=== PATIENT | female | born 1995 | race Two or more races ===

== ENCOUNTER → 2025-02-13 | Emergency (ER) | payer OTHER ==
[~2025-02-13] VITALS: Ht 157.5 cm; Wt 68.0 kg
[~2025-02-13] MED LIST: KETOROLAC TROMETHAMINE 30 MG VIAL IV ONE; MACROBID 100 M100 MG PO; NORFLEX100MG PO; PEPCID AC20 MG PO
[2025-02-13 16:14] LABS: BASO % 1.0 % (0.1-1.2); EOS # 0.13 (0.04-0.54); EOS % 1.5 % (0.7-7.0); LYMPH # 3.65 (1.18-3.74); LYMPH % 42.0 % (19.3-53.1); MEAN PLATELET VOLUME 9.50 fl (9.4-12.4); MONO # 0.50 (0.24-0.82); MONO % 5.7 % (4.7-12.5); NEUT # 4.31 (1.56-6.13); NEUT % 49.6 % (34.0-71.1); RED CELL DISTRIBUTION WIDTH 13.8 % (11.6-14.4)
[2025-02-13 16:38] LABS: ALT/SGPT 34.0 U/L (12-78); AST/SGOT 24.0 U/L (15-37); BILIRUBIN TOTAL 0.49 mg/dL (0.3-1.2); BUN CREA RATIO 17.0 (7.0-25.0); CREATININE SERUM 0.63 mg/dL (0.55-1.02); GFR 113.35; GLOBULINA 3.8 G/DL (2.4-3.5); GLUCOSE FASTING 91.0 mg/dL (65-100); OSMOLALITY SERUM 280.0 MOSM/KG (275-295)
[2025-02-13 17:02] LABS: URINE APPEARANCE Cloudy; URINE BILIRRUBIN Negative (NEGATIVE); URINE BLOOD Negative; URINE COLOR Yellow; URINE GLUCOSE Negative (NEGATIVE); URINE KETONE 15 (NEGATIVE); URINE LEUKOCYTE Trace; URINE NITRATE Negative; URINE PROTEIN Negative (NEGATIVE); URINE UROBILINOGEN 1.0 E.U./dl
[2025-02-13 17:56] LABS: URINE BACTERIA 5355.2 uL (0.0-1933); URINE CAST 1.75 uL (0.0-1.40); URINE EPITHELIAL CELLS 106.8 uL (0.0-38.8); URINE RBC 10.5 uL (0.0-20.8); URINE WBC 69.9 uL (0.0-23.2)
== END | disposition home or self-care (01) ==
LOC: ER 13:00
PROVIDERS: General Practice
DX: M54.50 Low back pain, unspecified (principal); Q90.9 Down syndrome, unspecified; N39.0 Urinary tract infection, site not specified
CPT/HCPCS: 36415; 72100; 96365; 99283; J1885